=== PATIENT | male | born 1975 | race Caucasian/White ===

== ENCOUNTER 2022-10-03 15:51 | Observation (INO) ==
--- NOTE | 2022-10-03 16:12 | Emergency Department Note ---
ED Provider Note History of Present Illness Chief Complaint: Abdominal Pain Stated Complaint: ?APPENDICITIS,ABD PAIN Time Seen by Provider: 10/03/22 16:11 This is a 47-year-old male with no significant past medical history on no daily medications who presents to the emergency department concern he has appendicitis. He developed right lower abdominal pain at 3:00 this morning and it has not gotten any better. It is worse when he changes position, improves with rest. It was hurting him when he was driving here and hitting bumps on the road. He has not taken anything for the pain. Sometimes the pain will slightly radiate towards his groin that he does not think he has a hernia. Symptoms are not accompanied by any nausea or vomiting. He has not had any diarrhea. Denies any history of abdominal pain. No history of kidney stones. Denies any dysuria, hematuria, difficulty urinating, or any new back pain. No specific injuries. No fevers or chills. No scrotal pain or testicular swelling. No history of any abdominal surgeries Home Medications Medication Instructions Recorded Confirmed Type No Known Home Medications 10/03/22 10/03/22 History Allergies Allergy/AdvReac Type Severity Reaction Status Date / Time No Known Allergies Allergy Unverified 10/03/22 18:25 Past Med/Surg History Medical History No pertinent past medical history Surgical History (Updated 10/03/22 @ 18:46 by Shirlene Mckeon DO) History of orthopedic surgery Fb removal right forearm Social History Smoking Status: Former smoker Feels Safe at Home: Yes Physical Exam Vital Signs Vital Signs - 24 hr 10/03/22 15:56 10/03/22 18:57 Temperature 98.2 F 99.5 F Temperature Source Temporal Artery Scan Oral Pulse Rate 100 H Pulse Rate [Finger] 78 Respiratory Rate 20 22 Respiratory Effort / Characteristics Non-Labored Non-Labored Spontaneous Respiratory Depth Normal Normal Respiratory Pattern Regular Blood Pressure 131/94 Blood Pressure [Right Arm] 139/95 Blood Pressure Mean 106 Blood Pressure Mean [Right Arm] 109 Blood Pressure Position [Right Arm] Semi-fowlers Pulse Oximetry 98 95 Oxygen Delivery Method Room Air Room Air Sepsis Recent Fever Within 48 Hours No Sepsis New/Unexplained Change in Mental Status N/A Sepsis Action Taken by Nursing No Action Required CONSTITUTIONAL: Well developed, well nourished, in no acute distress. HEAD: Normocephalic, atraumatic. EYES: conjunctivae normal, extraocular muscles intact. No scleral icterus ENMT: External ears normal. Nose with normal external appearance, no congestion. Oral mucous membranes moist. Oropharynx normal. NECK: Full active range of motion. LYMPHATIC: No cervical or inguinal adenopathy RESPIRATORY: Breathing unlabored and symmetric. Lungs clear to auscultation bilaterally. No wheeze, rales, or rhonchi. CARDIOVASCULAR: Regular rate and rhythm. No murmurs, rubs, or gallops. ABDOMEN: Normal bowel sounds. Abdomen is soft with no peritonitis. There is reproducible tenderness in the right lower quadrant. Negative Desouza sign. No CVA tenderness bilaterally. Negative psoas, obturator, or Rovsing sign GENITOURINARY: Female RN bat carrier present. Normal appearance with no lesions, rashes, or discharge noted. Testicles descended bilaterally with no tenderness, swelling, or masses. No epididymal tenderness. No hernias. MUSCULOSKELETAL: Moves all extremities at all joints without pain or difficulty. No cyanosis or edema. Back with full range of motion with no tenderness SKIN: [place], warm, dry. No rash NEUROLOGIC: Awake, alert, oriented. Gaze is conjugate. Face symmetric, speech normal. Moves head and all four extremities spontaneously. Sensation and strength grossly intact. Ambulates in the room PSYCHIATRIC: Appropriate. Normal affect Course Administered Medications Discontinued Medications Sodium Chloride (Nss 1000ml) 1,000 mls @ 999 mls/hr IV .Q1H1M ONE Stop: 10/03/22 17:46 Last Admin: 10/03/22 16:51 Dose: 999 mls/hr Documented By: LAURA Piperacillin Sod/Tazobactam Sod (Zosyn) 4.5 gm in 120 mls @ 240 mls/hr IV NOW ONE Stop: 10/03/22 18:23 Last Admin: 10/03/22 17:59 Dose: 240 mls/hr Documented By: VIJI Ioversol (Optiray 320 100ml) 91 ml IV ONCE ONE Stop: 10/03/22 17:11 Last Admin: 10/03/22 17:10 Dose: 91 ml Documented By: MURALI Medical Decision Making Differential Diagnosis Appendicitis, diverticulitis, hernia, ureterolithiasis, UTI, testicular torsion, mesenteric adenitis, myofascial pain, muscular strain, pyelonephritis, hydronephrosis, gastroenteritis, among other pathology Laboratory Data 10/03/22 16:10 10/03/22 16:10 Lab Results 10/03/22 10/03/22 10/03/22 Range/Units 16:10 16:10 16:48 WBC 12.30 H (4.8-10.8) K/ul RBC 4.87 (4.70-6.10) M/uL Hgb 15.6 (14.0-18.0) g/dl Hct 44.2 (42.0-52.0) % MCV 90.8 (80.0-100.0) fL MCH 32.0 (25.0-34.0) pg MCHC 35.3 (32.0-36.0) g/dL RDW Std Deviation 42.3 (36.4-46.3) fL RDW Coeff of [place]ida 12.8 (11.5-14.5) % Plt Count 278 (130-400) K/uL MPV 10.3 (9.4-12.4) fL Immature Gran % (Auto) 0.5 % Neut % (Auto) 83.1 % Lymph % (Auto) 8.6 % [place] % (Auto) 7.4 % Eos % (Auto) 0.2 % Baso % (Auto) 0.2 % Neut # (Auto) 10.22 H (1.40-6.50) K/uL Lymph # (Auto) 1.06 L (1.2-3.4) K/uL [place] # (Auto) 0.91 H (0.11-0.59) K/uL Eos # (Auto) 0.03 (0-0.50) K/uL Baso # (Auto) 0.02 (0-0.2) K/uL Immature Gran # (Auto) 0.06 (0.01-0.20) K/uL Sodium 138 (136-145) mmol/L Potassium 4.0 (3.5-5.1) mmol/L Chloride 101 (98-107) mmol/L Carbon Dioxide 28 (21-32) mmol/L Anion Gap 9 (3-11) BUN 14 (6-23) mg/dl Creatinine 0.97 (0.6-1.4) mg/dl Est Cr Clr Drug Dosing 102.9 ml/min Est GFR ( Amer) 108.8 ml/min Est GFR (Non-Af Amer) 93.9 ml/min BUN/Creatinine Ratio 14.4 (10-20) Glucose 88 (70-99(Fasting)) mg/dl Calcium 10.4 H (8.6-10.3) mg/dl Total Bilirubin 0.9 (0.2-1.0) mg/dl AST 26 (13-39) U/L ALT 26 (7-52) U/L Alkaline Phosphatase 87 (34-104) U/L Total Protein 8.6 H (6.0-8.3) gm/dl Albumin 5.2 H (3.4-5.0) gm/dl Globulin 3.4 (2.5-4.0) gm/dl Albumin/Globulin Ratio 1.5 (0.9-2) Lipase 23 (11-82) U/L Urine Color Yellow Urine Appearance Clear (Clear) Urine pH 7.5 (4.5-7.5) Ur Specific [place] 1.013 (1.000-1.030) Urine Protein Negative (Negative) Urine Glucose (UA) Negative (Negative) Urine Ketones Negative (Negative) Urine Blood Negative (Negative) Urine Nitrite Negative (Negative) Urine Bilirubin Negative (Negative) Urine Urobilinogen Negative (Negative) Ur Leukocyte Esterase Negative (Negative) Imaging Data Radiologist's Impression: Abdomen/Pelvis CT 10/03/22 16:44 CT SCAN OF THE ABDOMEN AND PELVIS WITH IV CONTRAST CLINICAL HISTORY: Right lower quadrant abdominal pain. COMPARISON STUDY: No priors. TECHNIQUE: Following the IV administration of 91 cc of Optiray 320, CT scan of the abdomen and pelvis is performed from the lung bases to the proximal femora. Images are reviewed in the axial, sagittal, and coronal planes. IV contrast was administered without complication. A dose lowering technique was utilized adhering to the principles of ALARA. CT DOSE: 1027.65 mGy.cm FINDINGS: Lung bases: The heart is normal in size and without pericardial effusion. The lung bases are clear noting dependent atelectasis. There is a tiny hiatal hernia. Liver: The contrast-enhanced liver is normal in size, contour, and attenuation. There is no intrahepatic biliary ductal dilatation. The hepatic veins and portal veins are patent. Gallbladder: Unremarkable. Spleen: Normal in size and attenuation. Pancreas: Unremarkable. Adrenal glands: Unremarkable. Kidneys: The contrast enhanced kidneys are normal in size and without hydronephrosis. The kidneys enhance symmetrically. Abdominal vasculature: The abdominal aorta is normal in course and caliber. Bowel: There is mild colonic fecal retention. No bowel obstruction is seen. The appendix is distended and fluid-filled, measuring up to 14 mm in diameter. The appendiceal wall is thickened and hyperemic and there is periappendiceal inflammation and fluid. Findings are consistent with acute appendicitis. No fluid collection is seen to suggest abscess. Peritoneum: No intraperitoneal free air is identified. There is trace free fluid in in the right paracolic gutter and pelvis. There is a fat-containing umbilical hernia. Lymphadenopathy: None. Pelvic viscera: The prostate gland is normal in appearance. The bladder is decompressed and appears circumferentially thick walled. The seminal vesicles are normal. Skeletal structures: No lytic or blastic lesions are seen. There is mild disc space narrowing at L5-S1. IMPRESSION: 1. Acute appendicitis. 2. There is no evidence of abscess or perforation. 3. Trace free fluid in the right paracolic gutter and pelvis is likely reactive. 4. The bladder appears circumferentially thick walled. Correlate with clinical findings and urinalysis. 5. Additional findings as above. ACT 112: Negative or not required by law. Electronically signed by: Jerad Frazier M.D. 10/03/2022 5:41 PM MDM Narrative 47-year-old male presents to the emergency department with right lower abdominal pain that began this morning around 3:00 in the morning. Not accompanied by any nausea, vomiting, or diarrhea. No other symptoms at this time. Overall well-appearing, nontoxic. He does have reproducible tenderness in the right lower quadrant slightly lat eral to McBurney's point. No peritonitis. Remainder of exam is unremarkable. An IV was established and labs were obtained. He was given IV fluids. He declined anything for pain or nausea. There is a leukocytosis at 12.3. No electrolyte disturbance. Renal function is normal. No transaminitis. Urinalysis is negative for infection or blood A CT of the abdomen and pelvis was ordered demonstrating acute appendicitis. There is likely some reactive fluid, no evidence of abscess. Zosyn was ordered IV. Case discussed with Dr. Moreno (general surgery on-call) who evaluated the patient at bedside and he will be taken to the OR. Impression Acute appendicitis, Leukocytosis Discharge Plan Visit Data Chief Complaint: Abdominal Pain Stated Complaint: ?APPENDICITIS,ABD PAIN ED Provider: Corey Hale ED Midlevel Provider: Silvano Llamas Discharge Problem: Acute appendicitis, Leukocytosis Patient Disposition: Admitted As Inpatient Condition: Fair Forms Stand Alone Forms: [employer] Prescriptions Prescriptions: No Action No Known Home Medications Referrals Referrals: PCP,NO [Primary Care Provider] - Acute appendicitis Qualifiers: Acute appendicitis type: with localized peritonitis Appendicitis gangrene presence: without gangrene Appendicitis perforation presence: without perforation Appendicitis abscess presence: without abscess Qualified Code(s): K35.30 - Acute appendicitis with localized peritonitis, without perforation or gangrene Leukocytosis Qualifiers: Leukocytosis type: unspecified Qualified Code(s): D72.829 - Elevated white blood cell count, unspecified
[2022-10-03 16:44] LABS: Basophils # (auto) 0.02 K/uL (0-0.2); Basophils % (auto) 0.2 %; Eosinophils # (auto) 0.03 K/uL (0-0.50); Eosinophils % (auto) 0.2 %; Hematocrit (blood only) 44.2 % (42.0-52.0); Hemoglobin 15.6 g/dl (14.0-18.0); Immature Granulocytes # (auto) 0.06 K/uL (0.01-0.20); Immature Granulocytes % (auto) 0.5 %; Lymphocytes # (auto) 1.06 K/uL (1.2-3.4); Lymphocytes % (auto) 8.6 %; Mean Corpuscular Hgb Conc 35.3 g/dL (32.0-36.0); Mean Corpuscular Volume 90.8 fL (80.0-100.0); Mean Platelet Volume 10.3 fL (9.4-12.4); Monocytes # (auto) 0.91 K/uL (0.11-0.59); Monocytes % (auto) 7.4 %; Neutrophils # (auto) 10.22 K/uL (1.40-6.50); Neutrophils % (auto) 83.1 %; Platelet Count 278 K/uL (130-400); RDW Coefficient of Variation 12.8 % (11.5-14.5); RDW Standard Deviation 42.3 fL (36.4-46.3); Red Blood Count 4.87 M/uL (4.70-6.10)
[2022-10-03] MEDS ORDERED: SODIUM CHLORIDE 0.9% 1000ML 1,000 ML IV ONE (16:46)
[2022-10-03 16:51] LABS: Albumin Globulin Ratio 1.5 (0.9-2); Albumin Level 5.2 gm/dl (3.4-5.0); BUN Creatinine Ratio 14.4 (10-20); Bilirubin,Total 0.9 mg/dl (0.2-1.0); Calcium 10.4 mg/dl (8.6-10.3); Creatinine Clr Calc Pharmacy 102.9 ml/min; Est GFR (African American) 108.8 ml/min; Est GFR (Non-African American) 93.9 ml/min; Globulin 3.4 gm/dl (2.5-4.0); Total Protein 8.6 gm/dl (6.0-8.3)
[2022-10-03] MEDS ORDERED: OPTIRAY 320 100ml IV ONE (17:10)
[2022-10-03 17:34] LABS: Appearance Urine Clear (Clear); Bilirubin Urine Negative (Negative); Blood Urine Negative (Negative); Color Urine Yellow; Glucose Urine UA Negative (Negative); Ketones Urine Negative (Negative); Leukocyte Esterase Urine Negative (Negative); Nitrite Urine Negative (Negative); Protein Urine Negative (Negative); Specific Gravity Urine 1.013 (1.000-1.030); Urobilinogen Urine Negative (Negative); pH Urine 7.5 (4.5-7.5)
--- NOTE | 2022-10-03 17:44 | CT Scan Report ---
CT SCAN OF THE ABDOMEN AND PELVIS WITH IV CONTRAST CLINICAL HISTORY: Right lower quadrant abdominal pain. COMPARISON STUDY: No priors. TECHNIQUE: Following the IV administration of 91 cc of Optiray 320, CT scan of the abdomen and pelvi s is performed from the lung bases to the proximal femora. Images are reviewed in the axial, sagittal , and coronal planes. IV contrast was administered without complication. A dose lowering technique wa s utilized adhering to the principles of ALARA. CT DOSE: 1027.65 mGy.cm FINDINGS: Lung bases: The heart is normal in size and without pericardial effusion. The lung bases are clear no ting dependent atelectasis. There is a tiny hiatal hernia. Liver: The contrast-enhanced liver is normal in size, contour, and attenuation. There is no intrahepa tic biliary ductal dilatation. The hepatic veins and portal veins are patent. Gallbladder: Unremarkable. Spleen: Normal in size and attenuation. Pancreas: Unremarkable. Adrenal glands: Unremarkable. Kidneys: The contrast enhanced kidneys are normal in size and without hydronephrosis. The kidneys enh ance symmetrically. Abdominal vasculature: The abdominal aorta is normal in course and caliber. Bowel: There is mild colonic fecal retention. No bowel obstruction is seen. The appendix is distende d and fluid-filled, measuring up to 14 mm in diameter. The appendiceal wall is thickened and hyperemi c and there is periappendiceal inflammation and fluid. Findings are consistent with acute appendiciti s. No fluid collection is seen to suggest abscess. Peritoneum: No intraperitoneal free air is identified. There is trace free fluid in in the right para colic gutter and pelvis. There is a fat-containing umbilical hernia. Lymphadenopathy: None. Pelvic viscera: The prostate gland is normal in appearance. The bladder is decompressed and appears c ircumferentially thick walled. The seminal vesicles are normal. Skeletal structures: No lytic or blastic lesions are seen. There is mild disc space narrowing at L5-S 1. IMPRESSION: 1. Acute appendicitis. 2. There is no evidence of abscess or perforation. 3. Trace free fluid in the right paracolic gutter and pelvis is likely reactive. 4. The bladder appears circumferentially thick walled. Correlate with clinical findings and urinalysi s. 5. Additional findings as above. ACT 112: Negative or not required by law. Electronically signed by: Jerad Frazier M.D. 10/03/2022 5:41 PM
[2022-10-03] MEDS ORDERED: PIPERACILLIN/TAZOBACTAM 4.5 GM/120 ML BAG IV ONE (17:54)
[2022-10-03] MEDS ORDERED: ATROPINE SULFATE 0.1 MG/ML 10ML SYR IV PRN (18:15)
[2022-10-03] MEDS ORDERED: ONDANSETRON INJ 2 MG/ML 2 ML VIAL IV PRN ×2 (18:15→21:15)
[2022-10-03] MEDS ORDERED: PROMETHAZINE HCL 12.5 MG in SODIUM CHLORIDE 0.9% 50 ML IV PRN ×2 (18:15→21:15)
[2022-10-03] MEDS ORDERED: ePHEDrine sulfate 50 MG/ML AMP IV PRN (18:15)
[2022-10-03] MEDS ORDERED: MoRPHine SULFATE 10 MG/ML CARP/VIAL IV PRN (18:15)
[2022-10-03] MEDS ORDERED: MEPERIDINE HCL 25 MG/ML CARP/VIAL IV PRN (18:15)
--- NOTE | 2022-10-03 18:15 | Anesthesiology Consultation ---
Date of Service October 03, 2022 Assessment & Plan Chart Review Chart Review: Acceptable Risk for Surgery Consults Requested none ASA ASA2 Proposed Anesthesia Anesthesia Type: General (RSI) Risk / Benefits Reviewed With: PT / POA / Parent / Guardian, Accepts Plan and Informed Consent Obtained History Surgery Operation Date: 10/03/22 18:10 Proposed Procedures p Laparoscopic Appendectomy - Dwight Moreno MD Height/Weight Height: 5 ft 8 in Weight: 86.5 kg Allergies Allergy/AdvReac Type Severity Reaction Status Date / Time No Known Allergies Allergy Unverified 10/03/22 18:25 Medications Home Medications Medication Instructions Recorded Confirmed Last Taken No Known Home Medications 10/03/22 10/03/22 Unknown NPO Date Last Intake of Fluids: 10/03/22 Time Last Intake of Fluids: 15:00 Date Last Intake of Solids: 10/02/22 Time Last Intake of Solids: 19:00 Past Medical History Medical History (Updated 10/03/22 @ 18:14 by Shirlene Mckeon DO) No pertinent past medical history Exercise / Class Metabolic Activity II 4-5 Yardwork/Stairs/Walk up hill Past Surgical History Surgical History (Updated 10/03/22 @ 18:46 by Shirlene Mckeon DO) History of orthopedic surgery Fb removal right forearm Past Anesthesia History No Hx of Anesthesia Complications and No Family Hx of Anesthesia Complications History of PONV No Hx of PONV and No Hx of Motion Sickness Social History Smoking Status: Former smoker Physical Exam Vital Signs Last Vital Signs Temp 36.8 C 10/03/22 15:56 Pulse 100 H 10/03/22 15:56 Resp 20 10/03/22 15:56 BP 131/94 10/03/22 15:56 Pulse Ox 98 10/03/22 15:56 O2 Del Method Room Air 10/03/22 15:56 ENMT Mouth: no TMJ abnormality Thyromental Distance: > or= 3.5 Finger Breadths Mallampati Class: II Neck normal visual inspection, trachea midline and + facial hair; neck extension not limited Respiratory normal respiratory effort Auscultation: lungs clear to auscultation bilaterally Cardiovascular Rate/Rhythm: regular rate and regular rhythm Heart Sounds: no murmur Musculoskeletal Spine: normal cervical ROM Extremities: full ROM of extremities Neurologic moves all extremities Psychiatric Orientation: alert and oriented x 3 Testing Laboratory Results 10/03/22 16:10 10/03/22 16:10 Urine Color Yellow 10/03/22 16:48 Urine Appearance Clear (Clear) 10/03/22 16:48 Urine pH 7.5 (4.5-7.5) 10/03/22 16:48 Ur Specific [place] 1.013 (1.000-1.030) 10/03/22 16:48 Urine Protein Negative (Negative) 10/03/22 16:48 Urine Glucose (UA) Negative (Negative) 10/03/22 16:48 Urine Ketones Negative (Negative) 10/03/22 16:48 Urine Nitrite Negative (Negative) 10/03/22 16:48 Ur Leukocyte Esterase Negative (Negative) 10/03/22 16:48
--- NOTE | 2022-10-03 18:23 | History & Physical Report ---
Date of Service October 03, 2022 Assessment & Plan (1) Acute appendicitis: (2) Leukocytosis: Plan 47-year-old gentleman presents with acute appendicitis. I discussed the risks and benefits of laparoscopic appendectomy with him. All his questions were answered, he is agreeable to proceed. Consent has been obtained. Will take him to the operating room at the earliest convenience. History of Present Illness Primary Care Provider: NO PCP 47-year-old gentleman presents with right-sided abdominal pain beginning at 3:00 in the morning yesterday. The pain was in the right lower quadrant, and has persisted throughout the day. He denies nausea or vomiting. He denies fevers and chills. He has never had any abdominal operations. He is having normal bowel movements. His last meal was yesterday. He denies hunger. Past Med/Surg History Medical History No pertinent past medical history Surgical History No pertinent past surgical history Social History Smoking Status: Never smoker Feels Safe at Home: Yes Review of Systems Review of Systems: All systems reviewed & are unremarkable except as noted in HPI & below Physical Exam Constitutional: WD/WN, vitals as above Eyes: PERRL, conjunctivae normal, anicteric sclerae Neck: trachea midline, no thyromegaly Respiratory: normal respiratory effort; no respiratory distress and no labored breathing Cardiovascular: Rate/Rhythm: regular rate and regular rhythm Gastrointestinal (Abdomen): Inspection/Auscultation: abdomen normal to inspection; abdomen not distended Percussion/Palpation: + abdomen tender (RLQ) and abdomen soft; no guarding and abdomen not rigid Skin: no rashes, warm and dry Psychiatric: A+Ox3, euthymic affect Results & Data Results & Data Vital Signs (Past 12 Hours) Vital Signs Temp Pulse Resp BP Pulse Ox O2 Del Method 10/03/22 15:56 36.8 C 100 H 20 131/94 98 Room Air Laboratory Results 10/03/22 10/03/22 10/03/22 Range/Units 16:48 16:10 16:10 WBC 12.30 H (4.8-10.8) K/ul RBC 4.87 (4.70-6.10) M/uL Hgb 15.6 (14.0-18.0) g/dl Hct 44.2 (42.0-52.0) % MCV 90.8 (80.0-100.0) fL MCH 32.0 (25.0-34.0) pg MCHC 35.3 (32.0-36.0) g/dL RDW Std Deviation 42.3 (36.4-46.3) fL RDW Coeff of [place] 12.8 (11.5-14.5) % Plt Count 278 (130-400) K/uL MPV 10.3 (9.4-12.4) fL Immature Gran % (Auto) 0.5 % Neut % (Auto) 83.1 % Lymph % (Auto) 8.6 % [place] % (Auto) 7.4 % Eos % (Auto) 0.2 % Baso % (Auto) 0.2 % Neut # (Auto) 10.22 H (1.40-6.50) K/uL Lymph # (Auto) 1.06 L (1.2-3.4) K/uL [place] # (Auto) 0.91 H (0.11-0.59) K/uL Eos # (Auto) 0.03 (0-0.50) K/uL Baso # (Auto) 0.02 (0-0.2) K/uL Immature Gran # (Auto) 0.06 (0.01-0.20) K/uL Sodium 138 (136-145) mmol/L Potassium 4.0 (3.5-5.1) mmol/L Chloride 101 (98-107) mmol/L Carbon Dioxide 28 (21-32) mmol/L Anion Gap 9 (3-11) BUN 14 (6-23) mg/dl Creatinine 0.97 (0.6-1.4) mg/dl Est Cr Clr Drug Dosing 102.9 ml/min Est GFR ( Amer) 108.8 ml/min Est GFR (Non-Af Amer) 93.9 ml/min BUN/Creatinine Ratio 14.4 (10-20) Glucose 88 (70-99(Fasting)) mg/dl Calcium 10.4 H (8.6-10.3) mg/dl Total Bilirubin 0.9 (0.2-1.0) mg/dl AST 26 (13-39) U/L ALT 26 (7-52) U/L Alkaline Phosphatase 87 (34-104) U/L Total Protein 8.6 H (6.0-8.3) gm/dl Albumin 5.2 H (3.4-5.0) gm/dl Globulin 3.4 (2.5-4.0) gm/dl Albumin/Globulin Ratio 1.5 (0.9-2) Lipase 23 (11-82) U/L Urine Color Yellow Urine Appearance Clear (Clear) Urine pH 7.5 (4.5-7.5) Ur Specific [place] 1.013 (1.000-1.030) Urine Protein Negative (Negative) Urine Glucose (UA) Negative (Negative) Urine Ketones Negative (Negative) Urine Blood Negative (Negative) Urine Nitrite Negative (Negative) Urine Bilirubin Negative (Negative) Urine Urobilinogen Negative (Negative) Ur Leukocyte Esterase Negative (Negative) Diagnostic Findings CT SCAN OF THE ABDOMEN AND PELVIS WITH IV CONTRAST CLINICAL HISTORY: Right lower quadrant abdominal pain. COMPARISON STUDY: No priors. TECHNIQUE: Following the IV administration of 91 cc of Optiray 320, CT scan of the abdomen and pelvis is performed from the lung bases to the proximal femora. Images are reviewed in the axial, sagittal, and coronal planes. IV contrast was administered without complication. A dose lowering technique was utilized adhering to the principles of ALARA. CT DOSE: 1027.65 mGy.cm FINDINGS: Lung bases: The heart is normal in size and without pericardial effusion. The lung bases are clear noting dependent atelectasis. There is a tiny hiatal hernia. Liver: The contrast-enhanced liver is normal in size, contour, and attenuation. There is no intrahepatic biliary ductal dilatation. The hepatic veins and portal veins are patent. Gallbladder: Unremarkable. Spleen: Normal in size and attenuation. Pancreas: Unremarkable. Adrenal glands: Unremarkable. Kidneys: The contrast enhanced kidneys are normal in size and without hydronephrosis. The kidneys enhance symmetrically. Abdominal vasculature: The abdominal aorta is normal in course and caliber. Bowel: There is mild colonic fecal retention. No bowel obstruction is seen. The appendix is distended and fluid-filled, measuring up to 14 mm in diameter. The appendiceal wall is thickened and hyperemic and there is periappendiceal inflammation and fluid. Findings are consistent with acute appendicitis. No fluid collection is seen to suggest abscess. Peritoneum: No intraperitoneal free air is identified. There is trace free fluid in in the right paracolic gutter and pelvis. There is a fat-containing umbilical hernia. Lymphadenopathy: None. Pelvic viscera: The prostate gland is normal in appearance. The bladder is decompressed and appears circumferentially thick walled. The seminal vesicles are normal. Skeletal structures: No lytic or blastic lesions are seen. There is mild disc space narrowing at L5-S1. IMPRESSION: 1. Acute appendicitis. 2. There is no evidence of abscess or perforation. 3. Trace free fluid in the right paracolic gutter and pelvis is likely reactive. 4. The bladder appears circumferentially thick walled. Correlate with clinical findings and urinalysis. 5. Additional findings as above. (1) Acute appendicitis Acute appendicitis type: with localized peritonitis Appendicitis abscess presence: without abscess Appendicitis gangrene presence: without gangrene Appendicitis perforation presence: without perforation Qualified Code(s): K35.30 - Acute appendicitis with localized peritonitis, without perforation or gangrene (2) Leukocytosis Leukocytosis type: unspecified Qualified Code(s): D72.829 - Elevated white blood cell count, unspecified
[2022-10-03] MEDS ORDERED: MIDAZOLAM HCL 1 MG/ML 2ML VIAL ONE (18:31)
[2022-10-03] MEDS ORDERED: fentaNYL citrate PF 100 MCG/2 ML VIAL ONE ×2 (18:31→20:12)
[2022-10-03] MEDS ORDERED: LIDOCAINE 2% 2 ML VIAL/AMP(20MG/ML) INFIL ONE (18:33)
[2022-10-03] MEDS ORDERED: ONDANSETRON INJ 2 MG/ML 2 ML VIAL ONE ×2 (18:33→19:59)
[2022-10-03] MEDS ORDERED: DEXAMETHASONE SOD INJ 4 MG/ML VIAL ONE (18:33)
[2022-10-03] MEDS ORDERED: ROCURONIUM BROMIDE 10 MG/ML 5 ML VIAL IV ONE (18:33)
[2022-10-03] MEDS ORDERED: PROPOFOL IV EMULSION 10 MG/ML 20 ML VIAL IV ONE (18:33)
[2022-10-03] MEDS ORDERED: BUPIVACAINE/EPINEPHRINE 0.25% 1:200,000 30 ML VIAL ONE (18:54)
[2022-10-03] MEDS ORDERED: MoRPHine SULFATE 2 MG/ML CARP ONE (19:39)
--- NOTE | 2022-10-03 19:45 | Operative Report ---
Post Operative Report Pre & Post Diagnosis Operation Date: 10/03/22 18:10 Pre-Op Diagnosis: Appendicitis Post-Op Diagnosis: Appendicitis I identified the patient and participated in the time-out.: Yes Procedure Operation Date: 10/03/22 18:10 Actual Procedures p Laparoscopic Appendectomy(Not Applicable) - Dwight Moreno MD Surgeon Dwight Moreno MD Programmer Analyst Consultant None Estimated Blood Loss 5 Findings Consistent with Post-Op Diagnosis Acute appendicitis Specimens Appendix Drains None Anesthesia Type General Complications No immediate complications Description of Procedure The patient was taken to the operating room, and placed supine on the operating table. A timeout was performed, perioperative antibiotics were administered, SCD boots were placed. After adequate anesthesia and analgesia was obtained, the abdomen was prepped and draped in the normal sterile fashion. A 1 cm incision was made in the supraumbilical region and carried down to the level of the fascia. A trach hook was used to grasp the fascia and elevated and a varies needle was used to enter the abdominal cavity. The abdomen was insufflated to a pressure of 15 mmHg, and a 5 mm trocar was placed in this location. A 5 mm 30 degree laparoscope was placed into the abdominal cavity, and the abdomen was surveyed. The patient was placed in Trendelenburg and slightly to the left. One 5 mm trocar was placed in the right upper quadrant, and one 12 mm trocar was placed in the left lower quadrant under direct visualization. The right colon was identified and traced down to the cecum. The appendix was identified and elevated anteriorly and medially. A window was created at the base of the appendix with a [place] dissector. The Endo HAO stapler was used to transect the appendix at its base through noninflamed tissue, and subsequently the mesoappendix. The appendix was placed in an Endo Catch bag, and removed via the left lower quadrant port site. Attention was turned to hemostasis, which was excellent. The abdomen was copiously irrigated and suctioned free, and again hemostasis was found to be excellent. All trochars removed under direct visualization. The abdomen was desufflated. The fascia in the 12 mm port site was closed with a 0 Vicryl suture. The skin was closed with a running 4-0 Monocryl subcuticular stitch. Dermabond was applied. The patient tolerated the procedure without complication, and was transferred in stable condition to the PACU. All instrument, needle, and sponge counts were correct at the end of the case. I attest to the content of the Intraoperative Record and any orders documented therein. Any exceptions are noted below.
[2022-10-03] MEDS: fentaNYL citrate PF 100 MCG/2 ML VIAL IV PRN ×2 (20:13→20:18)
--- NOTE | 2022-10-03 20:35 | Anesthesiology Progress Note ---
Date of Service October 03, 2022 Anesthesia Post Procedure Vital Signs Vital Signs: Temp Pulse Pulse Pulse Resp BP BP 10/03/22 20:30 89 12 136/95 10/03/22 20:20 90 12 137/91 10/03/22 20:10 95 H 22 131/86 10/03/22 20:00 98 H 20 144/87 H 10/03/22 19:51 36.3 C L 108 H 16 140/92 10/03/22 18:57 37.5 C 78 22 139/95 10/03/22 15:56 36.8 C 100 H 20 131/94 Pulse Ox O2 Del Method O2 Flow Rate 10/03/22 20:30 95 Room Air 10/03/22 20:20 94 Room Air 10/03/22 20:10 95 Room Air 10/03/22 20:00 100 Nasal Cannula 2 10/03/22 19:51 98 Nasal Cannula 5 10/03/22 18:57 95 Room Air 10/03/22 15:56 98 Room Air Pain Intensity Abdomen: Pain Intensity: 4 Transfer of Care Handoff Completed per policy Notes Mental Status: alert / awake / arousable Patient Amnestic to Procedure: Yes Nausea / Vomiting: adequately controlled Pain: adequately controlled Airway Patency, RR, SpO2: stable & adequate BP & HR: stable & adequate Hydration State: stable & adequate Anesthetic Complications: no major complications apparent and Pt Satisfied with anesthetic care
[2022-10-03] MEDS ORDERED: MoRPHine SULFATE 2 MG/ML CARP IV PRN (21:15)
[2022-10-03] MEDS ORDERED: KETOROLAC 30 MG/ML VIAL IV PRN (21:15)
[2022-10-03] MEDS ORDERED: diphenhydrAMINE Capsule 25 MG CAP PO PRN (21:15)
[2022-10-03] MEDS ORDERED: oxyCODONE/ACETAMINOPHEN 5mg/325mg TAB PO PRN (21:15)
[2022-10-04] MEDS ORDERED: ENOXAPARIN INJ 40 MG/0.4 ML SYR SQ SCH (08:00)
[2022-10-04] MEDS ORDERED: ACETAMINOPHEN 325 MG TAB PO PRN (09:45)
[2022-10-04] MEDS ORDERED: IBUPROFEN 600 MG TAB PO PRN (09:45)
--- NOTE | 2022-10-04 09:45 | Discharge Summary ---
Date of Service October 04, 2022 Admission HPI Per Admitting Provider 47-year-old gentleman presents with right-sided abdominal pain beginning at 3:00 in the morning yesterday. The pain was in the right lower quadrant, and has persisted throughout the day. He denies nausea or vomiting. He denies fevers and chills. He has never had any abdominal operations. He is having normal bowel movements. His last meal was yesterday. He denies hunger. Principal Diagnosis Acute appendicitis Discharge Exam Constitutional WD/WN, vitals as above healthy appearing, cooperative and comfortable; no acute distress and not ill appearing Respiratory normal respiratory effort; no respiratory distress Gastrointestinal (Abdomen) Inspection/Auscultation: abdomen normal to inspection, + abdomen distended (mild), + abdominal surgical incision (clean/dry/intact with dermabond) and + hypoactive bowel sounds; + abnormal bowel sounds Percussion/Palpation: + abdomen tender (at incision sites and RLQ) and abdomen soft; no guarding, abdomen not rigid and abdomen not firm Skin no rashes, warm and dry Psychiatric A+Ox3, euthymic affect Discharge Data Allergies Allergy/AdvReac Type Severity Reaction Status Date / Time No Known Allergies Allergy Unverified 10/03/22 18:25 Consultations 10/03/22 18:38 ED Decision to Admit Stat Procedures Performed Operation Date: 10/03/22 18:10 Actual Procedures p Laparoscopic Appendectomy(Not Applicable) - Dwight Moreno MD Ordered Studies 10/03/22 16:44 CT Abd and Pelvis [CT abd pelvis IV con only] Stat Hospital Course (1) Acute appendicitis: (2) Leukocytosis: Plan Patient taken to operating room for laparoscopic appendectomy by Dr. Moreno on 10/03/2022. Patient found to have acute appendicitis without perforation or rupture. Patient tolerated procedure without difficulty and was transferred to med/surg floor for postop care. Diet advanced as tolerated, activity as tolerated, pO Percocet as needed for pain, antiemetics as needed, SCDs and Lovenox for DVT prophylaxis. POD # 1 avss, postop pain mild and controlled, tolerated full liquids, no n,v. Encouraged ambulating hallway and diet advanced to regular diet for lunch. Patient was discharged home in afternoon of POD # 1 in stable condition. Total Time Total Time Spent Total Time Spent (In Minutes): 20 Total Time Includes: Examination of the Patient, Discharge Planning and Medication Reconciliation Discharge Plan Discharge Items Patient Disposition: Home - Self-Care Reason For Visit: ACUTE APPENDICITIS Discharge Diagnosis: Acute appendicitis Condition on Discharge: Fair Activity: Per Instructions section Non-emergency contact: Primary Care Provider and Surgeon Call non-emergency contact if: you have any medication questions, your symptoms worsen, your pain is worsening, your pain is concerning for you, you have a fever, your temperature is above 101, your wound has increased redness, your wound has increased drainage and your wound pain has increased Follow-up/Referrals: Eleonora Baez PA-C [Physician Professor In Family Studies] - (2 weeks ) PCP,NO [Primary Care Provider] - Diet: Regular Addtl Attending Provider Instructions: Post-Surgical ~Discharge Instructions Activity Recommendations: - lifting limitation: (20 pounds for 3 weeks), - exercise/sex/sports limit: (nonstrenuous for 2 weeks), - driving or machine use limit: (none for 1 week or until pain free and no longer taking narcotic pain medication), - Shower/bathe limit: (may shower beginning tonight, no submerging incisions underwater for 2 weeks) Diet: - Resume previous diet SPECIAL CARE INSTRUCTIONS: - May shower tonight. Let water run over area and pat dry. - Surgical glue will fall off on its own. Do not pick at it as this may cause infection. - Call the surgeon's office with any questions or concerns - - (ex. temperature higher than 101 degrees F, excessive bleeding or pain). MEDICATIONS: - Resume previous medications unless instructed otherwise by your surgeon. - May alternate extra strength Tylenol and Ibuprofen as needed for mild to moderate pain -650 mg Tylenol every 6 hours as needed - Ibuprofen 600 mg every 6 hours as needed (take with food) - Percocet 1 every 6 hours, as needed for moderate to severe pain - Recommend daily stool softener (Colace) while taking narcotic pain medication to prevent constipation or straining. FOLLOW UP VISIT: - If not already scheduled, please call the office to schedule a two week follow-up appointment. Office number Pending Studies at Discharge: Yes (appendix pathology) Stand-Alone Forms: My [employer], Smoking Cessation Medications and DC Order Prescriptions: New oxycodone-acetaminophen 5-325 mg tablet 1 tab PO Q6H PRN (Reason: pain) Qty: 10 0RF Discharge Orders: Discharge Order (Routine); Ordered 10/04/22 Ordered By: Eleonora Baez Admission Data Admit Date/Time: 10/03/22 19:48 Attending Provider: Dwight Moreno Admit Provider: Dwight Moreno Primary Care Provider: PCP,NO Other Providers: Dwight Moreno
== END 2022-10-04 13:52 | disposition home or self-care (01) ==
LOC: 3N 15:51 → ED 15:51 → 3N 10-08 11:02